=== PATIENT | male | born 2000 | race American Indian/Alaskan Native ===

== ENCOUNTER 2018-02-17 00:38 | Emergency (ER) | payer MEDICAID ==
[2018-02-17 01:12] VITALS: TEMP 98.8
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
[2018-02-17 02:58] VITALS: BP 122/78; PULSE 78; RESP 18; O2SAT 99
== END 2018-02-17 02:56 | disposition home or self-care (01) ==
LOC: ED 00:38
DX: S01.511A Laceration without foreign body of lip, initial encounter (principal); Y04.0XXA Assault by unarmed brawl or fight, initial encounter; Y92.89 Other specified places as the place of occurrence of the external cause

== ENCOUNTER 2018-05-19 07:41 | Inpatient (IN) | payer MEDICAID, OTHER ==
[2018-05-19 07:45] VITALS: BMI 21.1
[2018-05-19] MEDS ORDERED: Morphine 2 mg/ml ISec IVP STA ×2 (07:51→08:01)
[2018-05-19] MEDS ORDERED: Morphine 2 mg/ml ISec ONE (07:55)
[2018-05-19] MEDS ORDERED: Morphine 4 mg/ml ISec IVP STA (08:02)
[2018-05-19 08:20] LABS: BASO # 0.03 K/mm3 (0.0-2.0); BASO % 0.4 % (0.0-3.0); EOS # 0.1 (0.0-0.7); EOS % 0.8 % (1.5-5.0); GRAN # 3.47 (1.4-6.5); GRAN % 44.2 % (50.0-68.0); HEMOGLOBIN 14.3 g/dL (14.0-18.0); LYMPH % 50.7 % (22.0-35.0); MEAN CELL VOLUME 88.9 fl (80.0-105.0); MEAN CORPUSCULAR HGB CONC 34.9 g/dl (31.0-37.0); MEAN PLATELET VOLUME 9.1 fl (7.0-11.0); MONO # 0.3 (0.1-0.6); MONO % 3.9 % (1.0-6.0); RBC 4.61 10^6/uL (3.5-6.1); WHITE BLOOD COUNT 7.9 10^3/ul (4.5-11.0)
[2018-05-19] MEDS ORDERED: Sodium Chloride 0.9% 500 ML IV STA (08:25)
[2018-05-19 08:29] LABS: ALB/GLOB RATIO 1.5 (1.1-1.8); ALBUMIN 4.8 g/dL (3.0-4.8); ALT/SGPT 30 U/L (7-56); AST/SGOT 35 U/L (17-59); BLOOD UREA NITROGEN 13 mg/dL (7-21); CALCIUM 9.3 mg/dL (8.4-10.5); GFR AFRICAN-AMERICAN > 60; GFR NON-AFRICAN AMERICAN > 60
[2018-05-19 08:30] LABS: ACETAMINOPHEN < 10.0 ug/ml (10.0-20.0); SALICYLATE < 1 mg/dL (2.0-20.0)
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
[2018-05-19 08:40] LABS: TROPONIN I < 0.01 ng/mL
[2018-05-19 08:43] LABS: INR 1.12 (0.93-1.08); PARTIAL THROMBOPLASTIN TIME 27.6 Seconds (25.1-36.5); PROTHROMBIN TIME 12.9 SECONDS (9.4-12.5)
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
[2018-05-19 08:58] LABS: CK-MB 2.6 ng/mL (0.0-3.6)
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
[2018-05-19] MEDS ORDERED: Sodium Chloride 0.9% 1,000 ML IV STA ×2 (09:26→09:36)
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
[2018-05-19] MEDS ORDERED: Etomidate 20 mg/10ml Inj IVP STA (09:57)
[2018-05-19] MEDS ORDERED: Etomidate 20 mg/10ml Inj IV ONE (09:58)
[2018-05-19 11:02] LABS: PH,URINE 6.5 (4.7-8.0); URINE BILIRUBIN NEGATIVE (NEGATIVE); URINE BLOOD TRACE-INTACT (NEGATIVE); URINE GLUCOSE (UA) NEGATIVE (NEGATIVE); URINE LEUKOCYTE ESTERASE NEGATIVE Leu/uL (NEGATIVE); URINE PROTEIN NEGATIVE mg/dL (<30 mg/dL); URINE UROBILINOGEN 0.2 E.U./dL (<1 E.U./dL)
[2018-05-19 11:05] LABS: URINE APPEARANCE CLEAR (CLEAR); URINE COLOR LIGHT YELLOW (YELLOW)
[2018-05-19 11:33] LABS: BARBITURATES, UR NEGATIVE (NEGATIVE); BENZODIAZEPINES, UR NEGATIVE (NEGATIVE); OPIATES, UR POSITIVE (NEGATIVE); PHENCYCLIDINE, UR NEGATIVE (NEGATIVE)
[2018-05-19 11:47] LABS: URINE BACTERIA TRACE (NEG); URINE RBC 0 - 2 /hpf (0-2); URINE WBC 0 - 2 /hpf (0-6)
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
[2018-05-19] MEDS ORDERED: Sodium Chloride 0.9% 1,000 ML IV SCH (12:15)
[2018-05-19] MEDS ORDERED: HYDROmorphone 2 mg/ml ISec IVP PRN (12:32)
[2018-05-19] MEDS ORDERED: Morphine 4 mg/ml ISec IVP PRN (12:32)
[2018-05-19] MEDS ORDERED: Morphine 2 mg/ml ISec IVP PRN ×3 (12:44→15:40)
[2018-05-19] MEDS ORDERED: HYDROmorphone 0.5 mg/0.5 ml ISec IVP PRN (12:44)
[2018-05-19] MEDS ORDERED: Dextrose 5%/0.45% NS 1,000 ML IV SCH (12:45)
--- NOTE | 2018-05-19 13:43 | CARD ---
APPROVED REPORT EKG Measurement Heart [id number] <Conclusion> Normal sinus rhythm Rightward axis ST elevation, consider Early Repolarization Vs Early Pericarditis Abnormal ECG
[2018-05-19 14:39] LABS: BLOOD UREA NITROGEN 13 mg/dL (7-21); CALCIUM 8.6 mg/dL (8.4-10.5); GFR AFRICAN-AMERICAN > 60; GFR NON-AFRICAN AMERICAN > 60
[2018-05-19 14:50] LABS: TROPONIN I < 0.01 ng/mL
--- NOTE | 2018-05-19 15:45 | RAD ---
PROCEDURE: Pelvis right HISTORY: hip injury COMPARISON: Correlation made with concurrent CT scan of the pelvis TECHNIQUE: Two views of the pelvis performed FINDINGS: There is posterior dislocation of the right femoral head with respect to the acetabulum small bony fracture fragments seen on CT scan not appreciated on this study please refer to that report for additional information. IMPRESSION: Posterior dislocation right femoral head as above. Fracture fragments not appreciated on this study compared concurrent CT scan of the pelvis
--- NOTE | 2018-05-19 15:46 | RAD ---
PROCEDURE: Pelvis HISTORY: Postreduction COMPARISON: Comparison made with prior pelvic radiographs earlier same day FINDINGS: BONES: Interval reduction previously noted dislocated right femoral head IMPRESSION: Status post reduction previously noted dislocated right femoral head
[2018-05-19] MEDS: Bacitracin/Neomycin/Polymyxin Oint(30GM) TOP SCH (17:50)
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
[2018-05-19] MEDS: Oxycodone/Acetaminophen 2.5/325 mg Tab PO PRN (22:54)
[2018-05-20 07:33] LABS: BASO # 0.01 K/mm3 (0.0-2.0); BASO % 0.1 % (0.0-3.0); EOS # 0.3 (0.0-0.7); EOS % 3.6 % (1.5-5.0); GRAN # 3.31 (1.4-6.5); GRAN % 47.1 % (50.0-68.0); LYMPH # 2.6 (1.2-3.4); LYMPH % 37.4 % (22.0-35.0); MEAN CELL VOLUME 89.2 fl (80.0-105.0); MEAN CORPUSCULAR HEMOGLOBIN 30.4 pg (25.0-35.0); MEAN CORPUSCULAR HGB CONC 34.1 g/dl (31.0-37.0); MEAN PLATELET VOLUME 9.8 fl (7.0-11.0); MONO # 0.8 (0.1-0.6); MONO % 11.8 % (1.0-6.0); RBC 3.98 10^6/uL (3.5-6.1); RED CELL DISTRIBUTION WIDTH 13.3 % (11.5-14.5)
[2018-05-20 07:36] LABS: HEMOGLOBIN 12.1 g/dL (14.0-18.0)
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
[2018-05-20 07:55] LABS: BLOOD UREA NITROGEN 13 mg/dL (7-21); CALCIUM 8.8 mg/dL (8.4-10.5); GFR AFRICAN-AMERICAN > 60; GFR NON-AFRICAN AMERICAN > 60
--- NOTE | 2018-05-20 08:08 | CARD ---
APPROVED REPORT EKG Measurement Heart [id number] <Conclusion> Normal sinus rhythm Voltage criteria for left ventricular hypertrophy Early repolarization Abnormal ECG
[2018-05-20 08:22] LABS: CK MB% 0.4 % (2.5-3.0); CK-MB 22.3 ng/mL (0.0-3.6)
[2018-05-20] MEDS: Oxycodone/Acetaminophen 2.5/325 mg Tab PO PRN ×3 (08:23→21:50)
[2018-05-20] MEDS: Bacitracin/Neomycin/Polymyxin Oint(30GM) TOP SCH (10:29)
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
[2018-05-20] MEDS: Sodium Chloride 0.9% 1,000 ML IV SCH ×2 (15:12→20:45)
[2018-05-20] MEDS ORDERED: Morphine 2 mg/2 mL syringe IVP PRN (17:12)
--- NOTE | 2018-05-20 19:06 | CARD ---
APPROVED REPORT EXAM: Two-dimensional and M-mode echocardiogram with Doppler and color Doppler. INDICATION Abnormal EKG/Arrhythmia 2D DIMENSIONS Left Atrium (2D)3.9 (1.6-4.0cm)IVSd1.1 (0.7-1.1cm) LVDd4.3 (3.9-5.9cm)PWd1.2 (0.7-1.1cm) LVDs2.7 (2.5-4.0cm)FS (%) 37.4 % LVEF (%)67.8 (>50%) M-Mode DIMENSIONS Aortic Root2.30 (2.2-3.7cm)Aortic Cusp Exc.1.80 (1.5-2.0cm) Aortic Valve AoV Peak Xwmpvyku265.0cm/Reanna Peak GR.9mmHg Mitral Valve MV E Svuoeacg99.3cm/sMV A Bxepqbbf44.2cm/sE/A ratio1.9 TDI E/Lateral E'0.0E/Medial E'0.0 Tricuspid Valve TR Peak Ewbsthbd620ad/sRAP [id number] Peak Gr.20mmHg [id number] LEFT VENTRICLE The left ventricle is normal size. There is normal left ventricular wall thickness. The left ventricular function is normal. The left ventricular ejection fraction is within the normal range. There is normal LV segmental wall motion. The left ventricular diastolic function is normal. RIGHT VENTRICLE The right ventricle is normal size. There is normal right ventricular wall thickness. The right ventricular systolic function is normal. ATRIA The left atrium size is normal. The right atrium size is normal. AORTIC VALVE The aortic valve is normal in structure. No aortic regurgitation is present. There is no aortic valvular stenosis. MITRAL VALVE The mitral valve is normal in structure. There is no mitral valve regurgitation noted. There is no mitral valve stenosis. TRICUSPID VALVE There is mild tricuspid regurgitation. GREAT VESSELS The aortic root is normal in size. The IVC is normal in size and collapses >50% with inspiration. <Conclusion> The left ventricle is normal size. There is normal left ventricular wall thickness. The left ventricular function is normal. The left ventricular ejection fraction is within the normal range. There is normal LV segmental wall motion. The left ventricular diastolic function is normal. There is mild tricuspid regurgitation.
[2018-05-21] MEDS: Sodium Chloride 0.9% 1,000 ML IV SCH ×4 (01:15→18:14)
[2018-05-21 06:26] LABS: BASO # 0.02 K/mm3 (0.0-2.0); BASO % 0.3 % (0.0-3.0); EOS # 0.2 (0.0-0.7); EOS % 3.3 % (1.5-5.0); GRAN # 2.27 (1.4-6.5); GRAN % 37.9 % (50.0-68.0); HEMOGLOBIN 11.3 g/dL (14.0-18.0); LYMPH # 2.7 (1.2-3.4); LYMPH % 45.5 % (22.0-35.0); MEAN CELL VOLUME 89.9 fl (80.0-105.0); MEAN CORPUSCULAR HEMOGLOBIN 30.1 pg (25.0-35.0); MEAN CORPUSCULAR HGB CONC 33.4 g/dl (31.0-37.0); MEAN PLATELET VOLUME 9.8 fl (7.0-11.0); MONO # 0.8 (0.1-0.6); RBC 3.76 10^6/uL (3.5-6.1); RED CELL DISTRIBUTION WIDTH 13.1 % (11.5-14.5)
[2018-05-21 06:52] LABS: BLOOD UREA NITROGEN 9 mg/dL (7-21); CALCIUM 8.6 mg/dL (8.4-10.5); GFR AFRICAN-AMERICAN > 60; GFR NON-AFRICAN AMERICAN > 60
[2018-05-21 09:10] LABS: CK MB% 0.1 % (2.5-3.0); CK-MB 6.2 ng/mL (0.0-3.6)
[2018-05-21] MEDS: Bacitracin/Neomycin/Polymyxin Oint(30GM) TOP SCH (10:29)
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
[2018-05-21] MEDS: Oxycodone/Acetaminophen 2.5/325 mg Tab PO PRN (13:53)
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
[2018-05-21 23:14] LABS: PH,URINE 6.5 (4.7-8.0); URINE APPEARANCE CLEAR (CLEAR); URINE BILIRUBIN NEGATIVE (NEGATIVE); URINE BLOOD NEGATIVE (NEGATIVE); URINE COLOR COLORLESS (YELLOW); URINE GLUCOSE (UA) NEGATIVE (NEGATIVE); URINE LEUKOCYTE ESTERASE NEGATIVE Leu/uL (NEGATIVE); URINE PROTEIN NEGATIVE mg/dL (<30 mg/dL); URINE UROBILINOGEN 0.2 E.U./dL (<1 E.U./dL)
[2018-05-22] MEDS: Bacitracin/Neomycin/Polymyxin Oint(30GM) TOP SCH (09:51)
[2018-05-22 12:18] LABS: BASO # 0.01 K/mm3 (0.0-2.0); BASO % 0.2 % (0.0-3.0); EOS # 0.2 (0.0-0.7); EOS % 2.8 % (1.5-5.0); GRAN # 2.88 (1.4-6.5); HEMOGLOBIN 12.8 g/dL (14.0-18.0); LYMPH # 1.9 (1.2-3.4); LYMPH % 34.8 % (22.0-35.0); MEAN CELL VOLUME 88.9 fl (80.0-105.0); MEAN CORPUSCULAR HEMOGLOBIN 30.8 pg (25.0-35.0); MEAN CORPUSCULAR HGB CONC 34.7 g/dl (31.0-37.0); MEAN PLATELET VOLUME 9.9 fl (7.0-11.0); MONO # 0.5 (0.1-0.6); MONO % 9.2 % (1.0-6.0); RBC 4.15 10^6/uL (3.5-6.1); RED CELL DISTRIBUTION WIDTH 12.9 % (11.5-14.5); WHITE BLOOD COUNT 5.4 10^3/ul (4.5-11.0)
[2018-05-22 12:34] LABS: ALB/GLOB RATIO 1.2 (1.1-1.8); ALBUMIN 3.4 g/dL (3.0-4.8); ALT/SGPT 48 U/L (7-56); AST/SGOT 67 U/L (17-59); BLOOD UREA NITROGEN 7 mg/dL (7-21); CALCIUM 9.1 mg/dL (8.4-10.5); GFR AFRICAN-AMERICAN > 60; GFR NON-AFRICAN AMERICAN > 60
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
[2018-05-22] MEDS: Sodium Chloride 0.9% 1,000 ML IV SCH ×2 (18:25→20:20)
[2018-05-22] MEDS: Oxycodone/Acetaminophen 2.5/325 mg Tab PO PRN (20:20)
[2018-05-22 23:41] VITALS: O2SAT 98
[2018-05-23] MEDS: Sodium Chloride 0.9% 1,000 ML IV SCH ×3 (01:22→11:56)
[2018-05-23] MEDS: Oxycodone/Acetaminophen 2.5/325 mg Tab PO PRN ×2 (06:03→09:50)
[2018-05-23 08:03] LABS: BASO # 0.01 K/mm3 (0.0-2.0); BASO % 0.2 % (0.0-3.0); EOS # 0.3 (0.0-0.7); EOS % 4.8 % (1.5-5.0); GRAN # 3.06 (1.4-6.5); HEMOGLOBIN 11.7 g/dL (14.0-18.0); LYMPH % 33.3 % (22.0-35.0); MEAN CELL VOLUME 89.5 fl (80.0-105.0); MEAN CORPUSCULAR HEMOGLOBIN 30.8 pg (25.0-35.0); MEAN CORPUSCULAR HGB CONC 34.4 g/dl (31.0-37.0); MEAN PLATELET VOLUME 9.5 fl (7.0-11.0); MONO # 0.6 (0.1-0.6); MONO % 9.7 % (1.0-6.0); RBC 3.8 10^6/uL (3.5-6.1); RED CELL DISTRIBUTION WIDTH 12.8 % (11.5-14.5); WHITE BLOOD COUNT 5.9 10^3/ul (4.5-11.0)
[2018-05-23 08:47] LABS: BLOOD UREA NITROGEN 7 mg/dL (7-21); GFR AFRICAN-AMERICAN > 60; GFR NON-AFRICAN AMERICAN > 60
[2018-05-23 08:48] LABS: ALB/GLOB RATIO 1.1 (1.1-1.8); ALBUMIN 2.9 g/dL (3.0-4.8); ALT/SGPT 37 U/L (7-56); AST/SGOT 42 U/L (17-59)
[2018-05-23] MEDS: POLYETHYLENE GLYCOL 3350 17 GM/Dose PACKET PO SCH ×2 (09:51→17:45)
[2018-05-23] MEDS: Bacitracin/Neomycin/Polymyxin Oint(30GM) TOP SCH (09:52)
[2018-05-23 10:08] LABS: CK-MB 0.9 ng/mL (0.0-3.6)
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
[2018-05-23] MEDS ORDERED: Bisacodyl 5mg EC Tab PO ONE (13:08)
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
--- NOTE | 2018-05-23 17:44 | RAD ---
HISTORY: constipation, abdominal pain COMPARISON: No prior. FINDINGS: BOWEL: Nonobstructive bowel gas pattern. No abnormal intra-abdominal calcifications or prominent free intraperitoneal gas. BONES: Normal. OTHER FINDINGS: None. IMPRESSION: Unremarkable abdomen KUB radiograph.
[2018-05-23 17:52] VITALS: BP 111/65; PULSE 52; RESP 20; TEMP 97.8
== END 2018-05-23 20:32 | disposition home or self-care (01) | DRG 560 ==
LOC: ED 07:41 → ERH 11:10 → 2RNO 12:09
PROVIDERS: ADMIT Internal Medicine; ATTEND Internal Medicine
PROC: 0QS6XZZ Reposition Right Upper Femur, External Approach (ICD-10-PCS; principal; 2018-05-19)
DX: S73.004A Unspecified dislocation of right hip, initial encounter (principal); M62.82 Rhabdomyolysis; F10.129 Alcohol abuse with intoxication, unspecified; F11.10 Opioid abuse, uncomplicated; E87.0 Hyperosmolality and hypernatremia; I31.9 Disease of pericardium, unspecified; S00.81XA Abrasion of other part of head, initial encounter; Y90.6 Blood alcohol level of 120-199 mg/100 ml; F12.10 Cannabis abuse, uncomplicated; K59.00 Constipation, unspecified; D64.9 Anemia, unspecified; V89.2XXA Person injured in unspecified motor-vehicle accident, traffic, initial encounter; Y92.410 Unspecified street and highway as the place of occurrence of the external cause

== ENCOUNTER 2018-07-31 13:05 | Emergency (ER) | payer MEDICAID ==
[2018-07-31 13:14] VITALS: BMI 20.9
[2018-07-31] MEDS ORDERED: DiphenhydrAMINE 50 mg/ml Inj IVP STA (13:26)
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
[2018-07-31] MEDS ORDERED: Sodium Chloride 0.9% 1,000 ML IV STA (13:27)
[2018-07-31 13:29] VITALS: RESP 18; TEMP 97.6
[2018-07-31 15:00] LABS: BASO # 0.02 K/mm3 (0.0-2.0); BASO % 0.2 % (0.0-3.0); EOS % 0.2 % (1.5-5.0); GRAN # 5.49 (1.4-6.5); GRAN % 65.5 % (50.0-68.0); HEMOGLOBIN 15.3 g/dL (14.0-18.0); LYMPH # 1.4 (1.2-3.4); MEAN CELL VOLUME 89.6 fl (80.0-105.0); MEAN CORPUSCULAR HEMOGLOBIN 30.5 pg (25.0-35.0); MEAN PLATELET VOLUME 9.6 fl (7.0-11.0); MONO # 1.4 (0.1-0.6); MONO % 17.1 % (1.0-6.0); RBC 5.02 10^6/uL (3.5-6.1); RED CELL DISTRIBUTION WIDTH 13.2 % (11.5-14.5); WHITE BLOOD COUNT 8.4 10^3/ul (4.5-11.0)
[2018-07-31 15:05] LABS: ALB/GLOB RATIO 1.2 (1.1-1.8); ALBUMIN 4.5 g/dL (3.0-4.8); ALT/SGPT 28 U/L (7-56); AST/SGOT 35 U/L (17-59); BLOOD UREA NITROGEN 11 mg/dL (7-21); CALCIUM 9.5 mg/dL (8.4-10.5); GFR NON-AFRICAN AMERICAN > 60
--- NOTE | 2018-07-31 15:22 | CT ---
Date of service: 07/31/2018 PROCEDURE: CT HEAD WITHOUT CONTRAST. HISTORY: frontal headache x 4 days, COMPARISON: None available. TECHNIQUE: Axial computed tomography images were obtained through the head/brain without intravenous contrast. Radiation dose: Total exam DLP = 840 mGy-cm. This CT exam was performed using one or more of the following dose reduction techniques: Automated exposure control, adjustment of the mA and/or kV according to patient size, and/or use of iterative reconstruction technique. FINDINGS: HEMORRHAGE: No intracranial hemorrhage. BRAIN: No mass effect or edema. No atrophy or chronic microvascular ischemic changes. VENTRICLES: Unremarkable. No hydrocephalus. CALVARIUM: Unremarkable. PARANASAL SINUSES: Unremarkable as visualized. No significant inflammatory changes. MASTOID AIR CELLS: Unremarkable as visualized. No inflammatory changes. OTHER FINDINGS: None. IMPRESSION: No acute findings
[2018-07-31 15:24] LABS: CK-MB 0.4 ng/mL (0.0-3.6)
[2018-07-31 17:19] VITALS: BP 109/72; PULSE 64; O2SAT 99
== END 2018-07-31 16:40 | disposition home or self-care (01) ==
LOC: ED 13:05
DX: J02.9 Acute pharyngitis, unspecified (principal); R59.0 Localized enlarged lymph nodes; F17.210 Nicotine dependence, cigarettes, uncomplicated
CPT/HCPCS: 70450; 80053; 82550; 82553; 83735; 85025; 87070; 87430; 96361; 96374; 96375; 99284; J1200; J2765; J7030

== ENCOUNTER 2018-09-25 08:48 | Emergency (ER) | payer MEDICAID ==
[2018-09-25 08:49] VITALS: BMI 20.9
[2018-09-25 08:57] VITALS: RESP 18
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
[2018-09-25 10:14] VITALS: BP 132/79; PULSE 72; TEMP 98.3; O2SAT 98
--- NOTE | 2018-09-25 13:21 | RAD ---
Date of service: 09/25/2018 PROCEDURE: Right Wrist Radiographs. HISTORY: medial wrist pain COMPARISON: None. FINDINGS: BONES: Normal. No fracture. JOINTS: Normal. No dislocation. SOFT TISSUES: Normal. OTHER FINDINGS: None. IMPRESSION: Normal right wrist radiographs.
== END 2018-09-25 10:13 | disposition home or self-care (01) ==
LOC: ED 08:48
DX: M77.8 Other enthesopathies, not elsewhere classified (principal)

== ENCOUNTER 2019-03-23 01:42 | Emergency (ER) | payer MEDICAID ==
[2019-03-23 01:42] VITALS: BMI 20.9
[2019-03-23 01:50] VITALS: TEMP 98.6
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
[2019-03-23] MEDS ORDERED: Lidocaine 1% Inj (20ml) INFIL STA (02:04)
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
[2019-03-23 03:37] VITALS: RESP 16
[2019-03-23 06:57] VITALS: BP 134/56; PULSE 62; O2SAT 99
--- NOTE | 2019-03-23 10:34 | CT ---
Date of service: 03/23/2019 PROCEDURE: CT HEAD WITHOUT CONTRAST. HISTORY: fall COMPARISON: CT head dated 07/31/2018. TECHNIQUE: Axial computed tomography images were obtained through the head/brain without intravenous contrast. Radiation dose: Total exam DLP = 885.31 mGy-cm. This CT exam was performed using one or more of the following dose reduction techniques: Automated exposure control, adjustment of the mA and/or kV according to patient size, and/or use of iterative reconstruction technique. FINDINGS: HEMORRHAGE: No intracranial hemorrhage. BRAIN: No mass effect or edema. No atrophy or chronic microvascular ischemic changes. VENTRICLES: Unremarkable. No hydrocephalus. CALVARIUM: Unremarkable. PARANASAL SINUSES: Unremarkable as visualized. No significant inflammatory changes. MASTOID AIR CELLS: Unremarkable as visualized. No inflammatory changes. OTHER FINDINGS: None. IMPRESSION: No acute intracranial pathology.
== END 2019-03-23 06:57 | disposition home or self-care (01) ==
LOC: ED 01:42
DX: S01.511A Laceration without foreign body of lip, initial encounter (principal); W01.0XXA Fall on same level from slipping, tripping and stumbling without subsequent striking against object, initial encounter